=== PATIENT | female | born 1990 | race African-American/Black ===

== ENCOUNTER 2017-04-18 18:55 | Emergency (ER) | payer OTHER ==
[2017-04-18 19:02] VITALS: BP 104/52; PULSE 118; BMI 21.9
[2017-04-18] MEDS ORDERED: ACETAMINOPHEN 650 MG/20.3 ML ORAL SOLUTION (CUPS) PO ONE (19:02)
[2017-04-18] MEDS ORDERED: ACETAMINOPHEN INJECTION 100 ML IVPB ONE (19:40)
[2017-04-18] MEDS ORDERED: ACETAMINOPHEN 1000 MG/100 ML VIAL (NON FORMULARY) IVPB ONE (19:53)
[2017-04-18] MEDS ORDERED: SODIUM CHLORIDE 1,000 ML IV ONE (19:54)
[2017-04-18 20:00] LABS: MCH 30.7 pg (25.7-33.7); MCHC 33.6 g/dl (32.0-36.0); MEAN CELL VOLUME 91.4 fl (80-96); MEAN PLT VOLUME 9.4 fl (7.5-11.1); PLATELET COUNT 179 K/MM3 (134-434); WHITE BLOOD COUNT 14.2 K/mm3 (4.0-10.0)
[2017-04-18] MEDS ORDERED: DEXAMETHASONE SOD PHOSPHATE 10 MG/1 ML VIAL ONE (20:15)
[2017-04-18] MEDS ORDERED: DEXAMETHASONE SOD PHOSPHATE 10 MG/1 ML VIAL IVPUSH ONE (20:17)
--- NOTE | 2017-04-18 20:17 | PDOC ---
History of Present Illness - General History Source: Patient, Old Records Exam Limitations: No Limitations - History of Present Illness Initial Comments: 04/18/17 20:50 The patient is a 27 year old female, with a significant past medical history of asthma and gastritis, who presents to the emergency department with a fever and sore throat for the past 1-2 days. The patient additionally reports nausea and vomiting earlier today. The patient reports that she has been taking OTC cold medications for her symptoms, without relief. The patient denies chills or any recent illnesses. The patient denies cough, shortness of breath or chest pain. Allergies: None reported. Past Surgical History: None reported. Social History: Current everyday smoker (1-2 packs/day). Denies alcohol consumption. Reports marijuana use. <Rhona Rust - Last Filed: 04/18/17 20:50> <Leda Duran - Last Filed: 04/18/17 22:57> - General Chief Complaint: SIRS, Suspected/Possible Stated Complaint: sore throat,fever, body aches Time Seen by Provider: 04/18/17 19:42 Past History <Rhona Rust - Last Filed: 04/18/17 20:50> - Past Medical History Asthma: Yes GI Disorders: Yes (GASTRITIS) - Psycho/Social/Smoking Cessation Hx Anxiety: No Suicidal Ideation: No Smoking Status: Yes Smoking History: Current every day smoker Have you smoked in the past 12 months: Yes Number of Cigarettes Smoked Daily: 10 Information on smoking cessation initiated: Yes 'Breaking Loose' booklet given: 04/18/17 Hx Alcohol Use: No Drug/Substance Use Hx: No Substance Use Type: Marijuana <Leda Duran - Last Filed: 04/18/17 22:57> - Past Medical History Allergies/Adverse Reactions: Allergies Allergy/AdvReac Type Severity Reaction Status Date / Time No Known Allergies Allergy Verified 04/18/17 18:57 Home Medications: Ambulatory Orders NK [No Known Home Medication] 04/18/17 Review of Systems - Review of Systems Able to Perform ROS?: Yes Comments:: 04/18/17 20:43 CONSTITUTIONAL: Present: +Fever Absent: no chills, no fatigue EYES: Absent: visual changes ENT: Present: +Sore throat Absent: ear pain CARDIOVASCULAR: Absent: chest pain, no palpitations RESPIRATORY: Absent: cough, no SOB GI: Present: +Nausea, vomiting Absent: abdominal pain, no constipation, no diarrhea GENITOURINARY: Absent: dysuria, no frequency, no hematuria MUSCULOSKELETAL: Absent: back pain, no arthralgia, no myalgia SKIN: Absent: rash NEURO: Absent: headache <RiversideRhona - Last Filed: 04/18/17 20:50> *Physical Exam - Vital Signs Last Vital Signs Temp Pulse Resp BP Pulse Ox 102.9 F H 118 H 18 104/52 100 04/18/17 18:59 04/18/17 18:59 04/18/17 18:59 04/18/17 18:59 04/18/17 18:59 - Physical Exam Comments: 04/18/17 20:28 GENERAL: Febrile. Well-appearing, well-nourished. No apparent distress. HEENT: Erythematous oropharynx with exudate. Normocephalic, atraumatic. PERRL, EOM intact. CARDIOVASCULAR: Normal S1, S2. Regular rate and rhythm. PULMONARY: Clear to auscultation bilaterally. ABDOMEN: Soft, non-distended, non-tender. EXTREMITIES: Normal ROM in all four extremities. No gross deformities. SKIN: Warm, dry. No rash. NEUROLOGICAL: No focal neurological deficits. <RiversideRhona - Last Filed: 04/18/17 20:50> - Vital Signs Last Vital Signs Temp Pulse Resp BP Pulse Ox 102.9 F H 118 H 18 104/52 100 04/18/17 18:59 04/18/17 18:59 04/18/17 18:59 04/18/17 18:59 04/18/17 18:59 <Leda Duran - Last Filed: 04/18/17 22:57> ED Treatment Course - LABORATORY CBC & Chemistry Diagram: 04/18/17 19:50 04/18/17 19:50 - ADDITIONAL ORDERS Additional order review: 04/18/17 19:50 RBC 4.51 MCV 91.4 MCHC 33.6 RDW 14.0 D MPV 9.4 Neutrophils % Y Lymphocytes % Y - Medications Given in the ED: ED Medications Discontinued Medications Generic Name Dose Route Start Last Admin Trade Name Freq PRN Reason Stop Dose Admin Acetaminophen 975 mg 04/18/17 19:02 04/18/17 19:03 Tylenol Oral Solution - PO 04/18/17 19:03 975 mg NOW ONE Administration Acetaminophen 1,000 mg 04/18/17 19:53 04/18/17 19:53 Ofirmev Injection - IVPB 04/18/17 19:54 1,000 mg NOW ONE Administration Dexamethasone Sodium Phosphate 10 mg 04/18/17 20:17 04/18/17 20:17 Decadron Injection - IVPUSH 04/18/17 20:18 10 mg NOW ONE Administration <Rhona Rust - Last Filed: 04/18/17 20:50> - LABORATORY CBC & Chemistry Diagram: 04/18/17 19:50 04/18/17 19:50 - ADDITIONAL ORDERS Additional order review: 04/18/17 19:50 RBC 4.51 MCV 91.4 MCHC 33.6 RDW 14.0 D MPV 9.4 Neutrophils % Y Lymphocytes % Y - Medications Given in the ED: ED Medications Discontinued Medications Generic Name Dose Route Start Last Admin Trade Name Tuan PRN Reason Stop Dose Admin Acetaminophen 975 mg 04/18/17 19:02 04/18/17 19:03 Tylenol Oral Solution - PO 04/18/17 19:03 975 mg NOW ONE Administration Acetaminophen 1,000 mg 04/18/17 19:53 04/18/17 19:53 Ofirmev Injection - IVPB 04/18/17 19:54 1,000 mg NOW ONE Administration <Leda Duran - Last Filed: 04/18/17 22:57> Medical Decision Making - Medical Decision Making 04/18/17 20:36 27-year-old female presents with fever, sore throat and some nausea vomiting this evening. On exam, she has an erythematous oropharynx with exudates Abdomen soft, nontender Lungs are clear to auscultation bilaterally CVS tachycardia Neuro alert and oriented 3. No gross focal neural deficits Plan strep culture, IV fluids, Decadron, Tylenol, CBC, 04/18/17 22:52 Patient is much more comfortable and her speech was much clearer after the Decadron. Chest x-ray was reviewed and this no acute infiltrate appreciated. Urinalysis was negative Negative test Chemistries to show hyper glycemia and her CBC did show leukocytosis Patient prefers to have an IM shot for antibiotics. She states that she very often has vaginal yeast infections while on antibiotics and she will be given Diflucan She has a primary doctor to follow-up with this week. <Leda Duran - Last Filed: 04/18/17 22:57> *DC/Admit/Observation/Transfer - Attestations Scribe Attestion: 04/18/17 20:26 Documentation prepared by Rhona Rust, acting as medical technologist microbiology for Leda Duran MD. <Rhona Rust - Last Filed: 04/18/17 20:50> <Leda Duran - Last Filed: 04/18/17 22:57> Diagnosis at time of Disposition: Generalized pain Pharyngitis Qualifiers: Pharyngitis/tonsillitis etiology: unspecified etiology Qualified Code(s): J02.9 - Acute pharyngitis, unspecified Fever Qualifiers: Fever type: unspecified Qualified Code(s): R50.9 - Fever, unspecified - Discharge Dispostion Disposition: HOME Condition at time of disposition: Stable - Patient Instructions Printed Discharge Instructions: DI for Fever (Symptom) -- Adult, DI for Strep Throat Additional Instructions: 1.PLEASE TAKE TYLENOL OR MOTRIN FOR FEVER,BODY ACHES 2. KEEP HYDRATED 3.FOLLOWUP WITH YOUR PHYSICIAN THIS WEEK 4.RETURN FOR ANY WORSENING SYMPTOMS
[2017-04-18] MEDS ORDERED: KETOROLAC TROMETHAMINE 30 MG/1 ML VIAL ONE (20:23)
[2017-04-18] MEDS ORDERED: KETOROLAC TROMETHAMINE 30 MG/1 ML VIAL IVPUSH ONE (20:26)
[2017-04-18 20:35] LABS: ALBUMIN 4.1 g/dl (3.4-5.0); ALK PHOS 59 U/L (45-117); ANION GAP 9 (8-16); BILIRUBIN,TOTAL 0.5 mg/dL (0.2-1.0); CALCIUM 8.9 mg/dL (8.5-10.1); CO2 24 mmol/L (21-32); GLUCOSE,RANDOM 148 mg/dL (74-106); SGOT/AST 11 U/L (15-37); SGPT/ALT 15 U/L (12-78); TOT PROT 7.1 g/dl (6.4-8.2)
[2017-04-18 20:54] VITALS: TEMP 99.3
[2017-04-18 22:20] LABS: URINE APPEARANCE SLCLOUDY; URINE BILIRUBIN NEGATIVE (NEGATIVE); URINE BLOOD NEGATIVE (NEGATIVE); URINE COLOR LTYELLOW; URINE GLUCOSE (UA) NEGATIVE (NEGATIVE); URINE KETONE 1+ (NEGATIVE); URINE LEUK ESTERASE TRACE (NEGATIVE); URINE NITRITE NEGATIVE (NEGATIVE); URINE PROTEIN NEGATIVE (NEGATIVE); URINE UROBILINOGEN NEGATIVE mg/dL (0.2-1.0)
[2017-04-18 22:35] LABS: URINE BACTERIA RARE /hpf (NONE SEEN); URINE RBC 3 /hpf (0-3); URINE WBC 4 /hpf (3-5)
[2017-04-18] MEDS ORDERED: FLUCONAZOLE 100 MG TABLET (UD) PO ONE (22:46)
[2017-04-18] MEDS ORDERED: PENICILLIN G BENZATHINE 1,200,000 UNIT/2 ML PFS IM ONE (22:53)
[2017-04-18] MEDS ORDERED: FLUCONAZOLE 100 MG TABLET (UD) ONE (23:09)
[2017-04-19 01:05] LABS: PLATELET COMMENT2 NO CLOTTING DETECTED; PLATELET ESTIMATE ADEQUATE (NORMAL); TOTAL CELLS COUNTED 100
== END 2017-04-18 23:29 | disposition home or self-care (01) ==
LOC: JER 18:55
PROC: 3E0337Z Introduction of Electrolytic and Water Balance Substance into Peripheral Vein, Percutaneous Approach (ICD-10-PCS; principal; 2017-04-18)
PROC: 3E02329 Introduction of Other Anti-infective into Muscle, Percutaneous Approach (ICD-10-PCS; 2017-04-18)
PROC: 3E0333Z Introduction of Anti-inflammatory into Peripheral Vein, Percutaneous Approach (ICD-10-PCS; 2017-04-18)
PROC: 3E033NZ Introduction of Analgesics, Hypnotics, Sedatives into Peripheral Vein, Percutaneous Approach (ICD-10-PCS; 2017-04-18)
DX: J02.9 Acute pharyngitis, unspecified (principal); R73.9 Hyperglycemia, unspecified; F17.210 Nicotine dependence, cigarettes, uncomplicated; Z87.09 Personal history of other diseases of the respiratory system
CPT/HCPCS: 36415; 71020-TC; 80053; 81003; 81015; 84703; 85025; 87070; 87430; 96361; 96372; 96374; 96375; 99283-25

== ENCOUNTER 2018-06-09 11:18 | Emergency (ER) | payer OTHER ==
[2018-06-09 11:35] VITALS: BP 109/56; PULSE 86; TEMP 97.8; BMI 22.6
--- NOTE | 2018-06-09 11:46 | PDOC ---
History of Present Illness - General Chief Complaint: Laceration Stated Complaint: LACERATION Time Seen by Provider: 06/09/18 11:45 History Source: Patient - History of Present Illness Location: reports: hands Past History - Past Medical History Allergies/Adverse Reactions: Allergies Allergy/AdvReac Type Severity Reaction Status Date / Time No Known Allergies Allergy Verified 06/09/18 11:27 Home Medications: Ambulatory Orders NK [No Known Home Medication] 04/18/17 Asthma: Yes COPD: No GI Disorders: Yes (GASTRITIS) - Suicide/Smoking/Psychosocial Hx Smoking Status: Yes Smoking History: Current every day smoker Have you smoked in the past 12 months: Yes Number of Cigarettes Smoked Daily: 10 Information on smoking cessation initiated: No 'Breaking Loose' booklet given: 04/18/17 Hx Alcohol Use: No Drug/Substance Use Hx: No Substance Use Type: Marijuana Review of Systems - Review of Systems Integumentary: Yes: Other (wound) *Physical Exam - Vital Signs Last Vital Signs Temp Pulse Resp BP Pulse Ox 97.8 F 86 18 109/56 L 99 06/09/18 11:26 06/09/18 11:26 06/09/18 11:26 06/09/18 11:26 06/09/18 11:26 - Physical Exam General Appearance: Yes: Appropriately Dressed, Mild Distress HEENT: positive: Normal Voice Neck: positive: Supple Respiratory/Chest: negative: Respiratory Distress Integumentary: positive: Other (~1-2mm cutaneous lac to fingertip w/ minor defect to distal nail, active/passive LIAM, no snesory deficit) Medical Decision Making - Medical Decision Making 06/09/18 11:45 28 yo F w/ L thumb lac 2/2 handling knife this am. No sensory changes See exam Minor L thumb lac No e/o tendon injury No need for repair -local wound care and dressing -tetanus UTD -wound check as needed in 2 days 06/09/18 11:59 *DC/Admit/Observation/Transfer Diagnosis at time of Disposition: Minor skin laceration - Discharge Dispostion Disposition: HOME Condition at time of disposition: Good - Referrals - Patient Instructions Printed Discharge Instructions: DI for Minor Laceration Additional Instructions: Keep wound clean and dry. If you notice redness, pus, or develop fever, return to the ER immediately - Post Discharge Activity Forms/Work/School Notes: Back to Work
[2018-06-09] MEDS ORDERED: IBUPROFEN 400 MG TABLET (FP) PO ONE ×2 (11:57)
== END 2018-06-09 12:11 | disposition home or self-care (01) ==
LOC: JERFT 11:18 → JER 11:18 → JERFT 12:11
DX: S61.012A Laceration without foreign body of left thumb without damage to nail, initial encounter (principal); W26.0XXA Contact with knife, initial encounter; Y93.G1 Activity, food preparation and clean up; Y92.511 Restaurant or cafe as the place of occurrence of the external cause; Y99.0 Civilian activity done for income or pay
CPT/HCPCS: 99281-25